=== PATIENT | male | born 1980 | race Caucasian/White ===

== ENCOUNTER 2021-12-24 22:38 | Emergency (ER) | payer OTHER ==
[~2021-12-24] VITALS: Ht 182.9 cm; Wt 86.4 kg
[2021-12-24] MEDS ORDERED: ZYRTEC10 M3 PO (22:48)
[2021-12-24] MEDS ORDERED: QUALITY CHOICE1 T26 PO (22:48)
[2021-12-24] MEDS ORDERED: SINGULAIR PO (22:48)
[2021-12-24] MEDS ORDERED: AMBIEN10 MG PO (22:48)
[2021-12-24] MEDS ORDERED: VITAMIN D325 MC4 PO (22:49)
[2021-12-25] MEDS ORDERED: EPIPEN 2-PAK1 MG/ML MR ×2 (01:25→01:33)
[2021-12-25 01:41] VITALS: BP 97/64
== END 2021-12-25 01:41 | disposition home or self-care (01) ==
LOC: ED 22:38
DX: T78.09XA Anaphylactic reaction due to other food products, initial encounter (principal); Z91.018 Allergy to other foods
CPT/HCPCS: J0171; J2930; J7030